=== PATIENT | male | born 1955 | race Caucasian/White ===

== ENCOUNTER → 2020-12-09 | Outpatient (CLI) | payer MEDICARE, BC ==
[~2020-12-09] MED LIST: ASPI-630 PO; ATOR40TA59 PO
--- NOTE | 2020-12-09 12:20 | PDOC1 ---
INITIAL PAIN CONSULT DATE OF SERVICE: DOS: DATE: 12/09/20 TIME: 12:13 CHIEF COMPLAINT: Chief Complaint: Neck and right upper extremity pain HISTORY OF PRESENT ILLNESS: 65-year-old male presents history of pain base the neck and right shoulder as well as occasional radiation of the right upper extremity going on since July 2020 not the result of any specific injury or accident that he is aware of but is had significant pain gradually increasing in the base the neck on the right shoulder and arm patient reports throbbing and stabbing tingling at times radiating in the right arm occasionally but not constantly patient reports its aching in the neck changes during the day worse with activity weight lifting repetitive motions with right upper extremity reaching over his head with his r ight hand for any repetitive motions also can disturb her from sleep although not every night but if he lays on his right side is much more noticeable. Patient reports has had trigger point injections in the neck and the shoulder as well as a physical therapy which is ongoing chiropractic treatment also ongoing exercises ongoing all which have helped but only temporarily patient is on his second round of a prednisone taper and is decreasing the pain significantly as it did the first time with the pain returning about 1 to 2 weeks later. Patient rates his disability rating 0-10 10 being the worst as a 3 with recreation social activity and occupation and 0 no other categories. Patient did have an MRI scan of the cervical spine showing at C6-7 diffuse disc bulge with small focal left foraminal disc protrusion facet and intervertebral hypertrophy seen with bilateral foraminal stenosis more prominent on the left. Patient reports no loss of motor function but fatigability with the right upper extremity when the pain is at its greatest. PAST MEDICAL HISTORY: PMH: Hearing loss, coronary artery disease, cataracts PREVIOUS SURGERIES: Past Surgical Hx: Coronary artery bypass grafting 2018, bilateral cataract extractions CURRENT MEDICATIONS: Current Meds: Active Scripts Medications Dose Route/Sig Max Daily Dose Days Date Category Aspirin 81 Mg Tab.chew 1 Tab PO DAILY 12/09/20 Reported Atorvastatin Calcium 40 Mg Tablet 1 Tab PO DAILY 12/09/20 Reported ALLERGIES; Allergies: Coded Allergies: No Known Drug Allergies (Unverified , 12/09/20) FAMILY HISTORY: Family Hx: Heart disease in patient's brother and father, colon cancer in patient's mother SOCIAL HISTORY: Social Hx: Patient does not drink alcohol does not smoke does not use any illegal illicit recreational drugs is lives with his spouse has 1 child living at home lives locally in [place], [place] REVIEW OF SYSTEMS: ROS: Positive for those items mentioned in history of present illness, all systems are reviewed, otherwise negative ,and are complete full and well-documented on patient's chart. PHYSICAL EXAM: VS: Blood pressure is 133/88 pulse 65 respirations 16 temperature is 98.3 F height is 5 foot 11 inches weight is 219 pounds PE: PHYSICAL EXAMINATION: GENERAL: The patient is awake, alert, oriented, appropriate, very pleasant demeanor HEENT: Shows normocephalic, atraumatic. Extraocular movements are intact and symmetrical. Patient wearing eyeglasses. Oral cavity: Mucous membranes moist and pink. Dentition is intact. NECK: Shows anterior throat supple without palpable lymphadenopathy noted. Swallow reflex symmetrical. CHEST: Shows normal on inspection. Breath sounds are clear bilaterally. HEART: Shows S1, S2 clear. No murmurs auscultated. ABDOMEN: Soft, nontender, nondistended. No palpable organomegaly is noted. No rebound or guarding demonstrated. BACK: Shows spine grossly in the midline. Normal-appearing cervical lordotic curvature. Cervical paraspinous muscles show symmetrical with inspection on palpation shows some moderate tenderness diffusely in the inferior aspect of the right cervical paraspinous posterior as well as the superior medial trapezius on the right side without specific trigger points asymmetry or atrophy or hypertrophy. Patient does show good rotation motion cervical spine both laterally as well as full extension full forward flexion without significant increase in pain. There is slightly increased thoracic kyphosis, some minor flattening of the lumbar lordotic curvature. EXTREMITIES: Upper extremities show deep tendon reflexes 2+ in the biceps and triceps tendons. Motor exam is 5 on a scale of 5 with right alloy weigher strength, biceps and triceps flexion and 5/5 on the left. Peripheral pulses are 2+ posterior radial. No peripheral edema is noted bilaterally. Upper extremities are warm and dry to touch, equal in color and appearance. Shoulder shrug is [facility] rosa maria and intact bilaterally as is abduction of the shoulder 90 degrees without loss of strength on resistance. SKIN: Shows warm and dry, good turgor. No edema. No sores, rashes or bruising throughout. IMPRESSION: Impression: 65-year-old male with approximate 5-month history of pain base of neck right upper extremity with radicular qualities MRI scan cervical spine as noted Coronary artery disease Options were discussed with the patient clued conservative medical management physical therapies interventional techniques. Patient like to proceed vaginal techniques. We discussed a cervical epidural steroid injection using description as well as anatomical models described procedure. As patient is doing quite well with his current steroid taper orally, we will wait till this is finished and if the pain returns as a he did after his first oral prednisone taper, we will have him return for cervical epidural steroid injection at that time. RONA VALENCIA MD Dec 09, 2020 12:20
== END | disposition home or self-care (01) ==
LOC: PNCL 08:47
PROVIDERS: ATTEND Anesthesiology
DX: M54.2 Cervicalgia (principal); M79.601 Pain in right arm; I25.10 Atherosclerotic heart disease of native coronary artery without angina pectoris; Z79.82 Long term (current) use of aspirin; Z79.899 Other long term (current) drug therapy; Z98.890 Other specified postprocedural states
CPT/HCPCS: G0463

== ENCOUNTER → 2020-12-23 | Outpatient (CLI) | payer MEDICARE, BC ==
[~2020-12-23] MED LIST changes: +IOHEXOL 180 MG/ML 10 ML VIAL. ONE; +methylPREDNISolone ACETATE 40 MG/ML VIAL. ONE; +methylPREDNISolone ACETATE 80 MG/ML VIAL. ONE
--- NOTE | 2020-12-23 10:54 | PDOC ---
Progress Note - Pain Clinic Date of Service: DOS: DATE: 12/23/20 TIME: 10:49 Diagnosis: Dx: Cervical radiculopathy with cervical degenerative disease and cervical herniated disc History or Present Illness: HPI: 65-year-old male returns follow-up status post initial evaluation and preauthorization with Medrol Dosepak taken as well patient reports 100% improvement with the Medrol Dosepak for 4 to 5 days the pain returning now in place the neck and right upper extremity as it was previously. Patient reports no new motor or sensory deficits no new bowel or bladder incontinence or other complaints. Patient rates the pain as a 4 on a scale of 10 is worst average and had 1 at its least and is a 4 today. Patient cries pain is aching and dull in the base the neck and shoulder right upper extremity right bicep into the hand as well as the fingers with some tingling times. Patient reports no difficulty with sleeping mostly noticeable with repetitive motions of the right upper extremity or weight lifting. Physical Exam: VS: Blood pressure is 133/88 pulse 62 respirations 16 temperature 90.5 F weight is 217 pounds PE: PHYSICAL EXAMINATION: GENERAL: The patient is awake, alert, oriented, appropriate, and very pleasant demeanor HEENT: Shows normocephalic, atraumatic. Extraocular movements are intact and symmetrical. NECK: Shows anterior throat supple without palpable lymphadenopathy noted. Swallow reflex symmetrical. CHEST: Shows normal on inspection. Breath sounds are clear bilaterally. HEART: Shows S1, S2 clear. No murmurs auscultated. ABDOMEN: Soft, nontender, nondistended, obese. No palpable organomegaly is noted. BACK: Shows spine grossly in the midline. Normal-appearing cervical lordotic curvature. Cervical paraspinous muscles show symmetrical with inspection on palpation some moderate tenderness diffusely but only diffusely without significant radiation. Patient does show good rotation motion cervical spine extension flexion without significant increase in pain as well. There is slightly increased thoracic kyphosis, some minor flattening of the lumbar lordotic curvature. EXTREMITIES: Upper extremities show deep tendon reflexes 2+ in the biceps and triceps tendons. Motor exam is 5 on a scale of 5 with right sash repairer strength, biceps and triceps flexion and 5/5 on the left. Peripheral pulses are 2+ radial. No peripheral edema is noted bilaterally. Upper extremities are warm and dry to touch, equal in color and appearance. SKIN: Shows warm and dry, good turgor. No edema. No sores, rashes or bruising throughout. Procedure: Procedure: Options were discussed with the patient. Patient chart reviewed his current medication regimen updated current review of systems updated today as well. We will proceed with a cervical epidural steroid ejections today with fluoroscopic guidance. Risks were discussed including but not limited to: Bleeding, infection, possibility of epidural hematoma and subsequent neurological compromise, dural puncture, headaches, spinal cord and/or nerve damage, side effects of steroid medication, and poor results regarding pain control. Patient understands and wished to proceed. Patient return to clinic in approximately 2 weeks for follow-up, was counseled as to return appointment activity level and side effects to be aware of. Medication Injected: Med Injected: Procedure cervical epidural steroid injection at the C6-7 level, using local anesthetic under sterile prep and drape using C-arm fluoroscopic guidance under local anesthesia medications injected ; 120 mg Depo-Medrol + 5 mL normal saline and 2 mL contrast; condition at discharge is stable patient tolerated procedure well. and had no complications Condition at Discharge: Condition at Discharge: Condition at discharge is stable, patient tolerated the procedure well and had no complications. RONA VALENCIA MD Dec 23, 2020 10:54
--- NOTE | 2020-12-23 10:56 | PDOC4 ---
PROCEDURE Procedure Patient was consented for cervical epidural steroid injection. Risks were d iscussed including but not limited to: Bleeding, infection, possibility of epidural hematoma and subsequent neurological compromise, dural puncture, headaches, spinal cord and/or nerve damage, side effects of steroid medication, and poor results regarding pain control. Patient understands and wished to proceed. Procedure cervical epidural steroid injection at the C6-7 level, using local anesthetic under sterile prep and drape using C-arm fluoroscopic guidance under local anesthesia medications injected ; 120 mg Depo-Medrol + 5 mL normal saline and 2 mL contrast; condition at discharge is stable patient tolerated procedure well. and had no complications RONA VALENCIA MD Dec 23, 2020 10:56
== END | disposition home or self-care (01) ==
LOC: PNCL 10:02
PROVIDERS: ATTEND Anesthesiology
DX: M50.10 Cervical disc disorder with radiculopathy, unspecified cervical region (principal); Z79.82 Long term (current) use of aspirin; Z79.899 Other long term (current) drug therapy
CPT/HCPCS: 62321; J1030; J1040; Q9965

== ENCOUNTER → 2021-01-06 | Outpatient (CLI) | payer MEDICARE, BC ==
[~2021-01-06] MED LIST changes: -IOHEXOL 180 MG/ML 10 ML VIAL. ONE; -methylPREDNISolone ACETATE 40 MG/ML VIAL. ONE; -methylPREDNISolone ACETATE 80 MG/ML VIAL. ONE
--- NOTE | 2021-01-06 09:23 | PDOC ---
Progress Note - Pain Clinic Date of Service: DOS: DATE: 01/06/21 TIME: 09:19 Diagnosis: Dx: Cervical radiculopathy with cervical degenerative disease and cervical herniated disc History or Present Illness: HPI: 65-year-old male returns for follow-up status post cervical epidural steroid injection x1. Patient reports 75% 80% improvement in the neck and right upper extremity. Patient reports he can increase his activity with greater ease and comfort sleeping better at night do daily activities distance walking playing golf working driving without significant increase in pain. Patient marva still has some pain in the base the neck and the right shoulder with some radiation to right upper extremity but it is rare patient reports pain is a 4 on a scale 10 is worse over the past week 1 on average 0 its least is a 1 today patient ports aching and dull tingling in the right arm at times but no new motor or sensory deficits no loss of strength reaching over his head with much greater ease and comfort and again sleeping well at night. Physical Exam: VS: Blood pressure is 125/80 pulse 67 respirations 16 temperature 98.0 F weight is 217 pounds PE: PHYSICAL EXAMINATION: GENERAL: The patient is awake, alert, oriented, appropriate, very pleasant demeanor HEENT: Shows normocephalic, atraumatic. Extraocular movements are intact and symmetrical. Oral cavity: Mucous membranes moist and pink. NECK: Shows anterior throat supple without palpable lymphadenopathy noted. Swallow reflex symmetrical. CHEST: Shows normal on inspection. Breath sounds are clear bilaterally, no rales or rhonchi. HEART: Shows S1, S2 clear. No murmurs auscultated. ABDOMEN: Soft, nontender, nondistended, obese. No palpable organomegaly is noted. BACK: Shows spine grossly in the midline. Normal-appearing cervical lordotic curvature. Cervical paraspinous muscles show symmetrical with inspection on palpation some mild tenderness in the inferior aspect of the cervical paraspinous musculature on the right only but only very minimal also into the superior medial trapezius but without trigger points without asymmetry or atrophy or hypertrophy. Neck shows full rotation motion cervical spine both laterally greater than 45 degrees closer to 90 degrees well is full extension full forward flexion without significant difficulty or pain reported. There is slightly increased thoracic kyphosis, some minor flattening of the lumbar lordotic curvature. EXTREMITIES: Upper extremities show deep tendon reflexes 2+ in the biceps and triceps tendons. Motor exam is 5 on a scale of 5 with right rib strength, biceps and triceps flexion and 5/5 on the left. Peripheral pulses are 2+ radial. No peripheral edema is noted bilaterally. Upper extremities are warm and dry to touch, equal in color and appearance. SKIN: Shows warm and dry, good turgor. No edema. No sores, rashes or bruising throughout. Procedure: Procedure: Options were discussed with the patient. Patient chart reviews his current medication regimen updated current review of systems updated today as well. We will hold any further injections the patient was in quite a bit better. Patient was encouraged to increase activity as tolerated continue stretching strength exercises as well. At this time patient will follow up on as-needed basis. Medication Injected: Med Injected: None Condition at Discharge: Condition at Discharge: Condition at discharge is stable. RONA VALENCIA MD Jan 06, 2021 09:23
== END | disposition home or self-care (01) ==
LOC: PNCL 08:52
PROVIDERS: ATTEND Anesthesiology
DX: M50.10 Cervical disc disorder with radiculopathy, unspecified cervical region (principal); Z79.82 Long term (current) use of aspirin; Z79.899 Other long term (current) drug therapy; Z98.890 Other specified postprocedural states
CPT/HCPCS: 99212; G0463

== ENCOUNTER → 2021-02-03 | Outpatient (CLI) | payer MEDICARE, BC ==
[~2021-02-03] MED LIST changes: +BUPIVACAINE MPF 0.25% 10 ML VIAL. ONE; +methylPREDNISolone ACETATE 40 MG/ML VIAL. ONE
--- NOTE | 2021-02-03 10:59 | PDOC ---
Progress Note - Pain Clinic Date of Service: DOS: DATE: 02/03/21 TIME: 10:54 Diagnosis: Dx: Cervical radiculopathy with cervical degenerative disease and cervical herniated disc Myofascial pain History or Present Illness: HPI: 65-year-old male returns for follow-up status post cervical epidural steroid traction x1 on December 23, 2020. Patient reports he did very well about 80% improvement still about 50% improved he has some significant increase in pain in the base of the neck upper neck shoulders and upper back bilaterally which is spastic and cramping. Patient reports has had some trigger point injections in the past which worked very well from outside provider and as though the radicular pain is still doing very well with the least 50% improvement the muscular pain is becoming more noticeable as he has been playing more golf lately and getting more active. Patient reports his pain is aching and dull tingling in the base the neck and shoulders also the upper neck and the base of the head patient reports a 6 on scale 10 is worse over the past week for an average to its least is a 4 today patient reports no new motor or sensory deficits no new changes. Physical Exam: VS: Blood pressure is 121/79 pulse 67 respirations 18 temperature 98.7 F height 5 feet 11 inches weight is 212 pounds PE: PHYSICAL EXAMINATION: GENERAL: The patient is awake, alert, oriented, appropriate, very pleasant demeanor HEENT: Shows normocephalic, atraumatic. Extraocular movements are intact and symmetrical. Oral cavity: Mucous membranes moist and pink. Dentition is intact. NECK: Shows anterior throat supple without palpable lymphadenopathy noted. Swallow reflex symmetrical. CHEST: Shows normal on inspection. Breath sounds are clear bilaterally, no rales or rhonchi. HEART: Shows S1, S2 clear. No murmurs auscultated. ABDOMEN: Soft, nontender, nondistended, obese. No palpable organomegaly is noted. No rebound or guarding demonstrated. BACK: Shows spine grossly in the midline. Normal-appearing cervical lordotic curvature. Cervical paraspinous muscles show symmetrical inspection with palpation shows some very firm tender musculature throughout the upper middle lower distribution the cervical paraspinous muscles are very firm ropelike musculature bilaterally with trigger point areas which are very tender but without radiation this is true into the superior medial trapezius muscle lateral trapezius worse on the right than the left also into the thoracic paraspinous musculature bilaterally with very firm ropelike musculature as well consistent with trigger point areas again without radiation but with very significant tend erness. There is slightly increased thoracic kyphosis, some minor flattening of the lumbar lordotic curvature. EXTREMITIES: Upper extremities show deep tendon reflexes 2+ in the biceps and triceps tendons. Motor exam is 5 on a scale of 5 with right strength, biceps and triceps flexion and 5/5 on the left. Peripheral pulses are 2+ radial. No peripheral edema is noted bilaterally. Upper extremities are warm and dry to touch, equal in color and appearance. SKIN: Shows warm and dry, good turgor. No edema. No sores, rashes or bruising throughout. Procedure: Procedure: Options were discussed with the patient. Patient chart reviews his current medication regimen updated current review of systems updated today as well. We will proceed with trigger point injections of the identified musculature. Risks are discussed including but not limited to bleeding infection possibility of intravascular injection sequelae spread local acetic numbness pneumothorax side effects steroid medication and portal scarring pain control. Patient understands wished to proceed. Patient return to clinic in approximate 2 weeks for follow-up was counseled as to return appointment activity level and side effects to be aware of. Medication Injected: Med Injected: Under sterile prep and drape patient sitting position, trigger point areas were identified in the bilateral cervical paraspinous posterior bilateral trapezius musculature bilateral thoracic paraspinous musculature. Each were injected using a 25-gauge needle after negative aspiration each injection site total of 12 cc 0.25% bupivacaine and total of 40 mg Depo-Medrol. Patient tolerated procedure well and had no complications. Condition at Discharge: Condition at Discharge: Condition at discharge stable, patient tolerated procedure well and had no complications. RONA VALENCIA MD Feb 03, 2021 10:59
--- NOTE | 2021-02-03 11:00 | PDOC4 ---
PROCEDURE Procedure Patient was consented for trigger point injections. Risk were discussed inc luding but not limited to bleeding infection possibility of intravascular injection sequelae spread to local anesthetic and numbness pneumothorax side effects of steroid medication and poor results running pain control. Patient understands wished to proceed. Under sterile prep and drape patient sitting position, trigger point areas were identified in the bilateral cervical paraspinous posterior bilateral trapezius musculature bilateral thoracic paraspinous musculature. Each were injected using a 25-gauge needle after negative aspiration each injection site total of 12 cc 0.25% bupivacaine and total of 40 mg Depo-Medrol. Patient tolerated procedure well and had no complications. RONA VALENCIA MD Feb 03, 2021 11:00
== END | disposition home or self-care (01) ==
LOC: PNCL 09:53
PROVIDERS: ATTEND Anesthesiology
DX: M50.10 Cervical disc disorder with radiculopathy, unspecified cervical region (principal); M79.18 Myalgia, other site; Z79.82 Long term (current) use of aspirin; Z79.899 Other long term (current) drug therapy
CPT/HCPCS: 20553; J1030; J3490

== ENCOUNTER → 2021-03-03 | Outpatient (CLI) | payer MEDICARE, BC ==
[~2021-03-03] MED LIST changes: -BUPIVACAINE MPF 0.25% 10 ML VIAL. ONE; +IOHEXOL 180 MG/ML 10 ML VIAL. ONE; +methylPREDNISolone ACETATE 80 MG/ML VIAL. ONE
--- NOTE | 2021-03-03 10:50 | PDOC ---
Progress Note - Pain Clinic Date of Service: DOS: DATE: 03/03/21 TIME: 10:47 Diagnosis: Dx: Cervical radiculopathy with cervical degenerative disc disease and cervical herniated disc Myofascial pain History or Present Illness: HPI: 65-year-old male returns for follow-up status post cervical epidural to injection x1 and trigger point injections. Patient reports that both of these helped significantly 80% with a cervical epidural injection which is December 23, 2020 and the same initially with trigger point directions but the pain returned fairly quickly after the trigger point injections. Patient reports pain now is in the base the neck and the left upper extremity shoulder and upper arm worse with repetitive motions weightbearing and lifting items but better with resting and sleeping patient reports is not awakening from sleep at night the pain is not debilitating and severely but is annoying and is present and getting worse on the left side patient reports is a 9 on scale 10 is worse over the past week 6 on average to its least. Patient reports is dull and tight neck shooting in the left arm and shoulder in the posterior deltoid posterior triceps and forearm patient reports no motor loss no other complaints. Physical Exam: VS: Blood pressure is 139/84 pulse 64 respirations are 16 temperature is 98.2 F height is 5 foot 11 inches weight is 216 pounds PE: PHYSICAL EXAMINATION: GENERAL: The patient is awake, alert, oriented, appropriate, very pleasant demeanor HEENT: Shows normocephalic, atraumatic. Extraocular movements are intact and symmetrical. Oral cavity: Mucous membranes moist and pink. Dentition is intact. NECK: Shows anterior throat supple without palpable lymphadenopathy noted. Swallow reflex symmetrical. CHEST: Shows normal on inspection. Breath sounds are clear bilaterally, distant but no rales or rhonchi. HEART: Shows S1, S2 clear. No murmurs auscultated. ABDOMEN: Soft, nontender, nondistended. No palpable organomegaly is noted. BACK: Shows spine grossly in the midline. Normal-appearing cervical lordotic curvature. Cervical paraspinous muscles show symmetrical inspection, on palpation some moderate tenderness diffusely bilaterally diffusely without significant radiation. Patient shows good rotation motion cervical spine both laterally as well as extension flexion without significant difficulty or pain reported. There is slightly increased thoracic kyphosis, some minor flattening of the lumbar lordotic curvature. EXTREMITIES: Upper extremities show deep tendon reflexes 2+ in the biceps and triceps tendons. Motor exam is 5 on a scale of 5 with right bowling teacher strength, biceps and triceps flexion and 5/5 on the left. Peripheral pulses are 2+ radial. No peripheral edema is noted bilaterally. Upper extremities are warm and dry to touch, equal in color and appearance. SKIN: Shows warm and dry, good turgor. No edema. No sores, rashes or bruising throughout. Procedure: Procedure: Options were discussed with patient. Patient will chart reviews his current medication regimen updated current review of systems updated today as well. We will proceed with a second in the series cervical epidural steroid injection today with fluoroscopic guidance. Risks were discussed including but not limited to: Bleeding, infection, possibility of epidural hematoma and subsequent neurological compromise, dural puncture, headaches, spinal cord and/or nerve damage, side effects of steroid medication, and poor results regarding pain control. Patient understands and wished to proceed. Patient will return to clinic in approximate 2 weeks for follow-up, was counseled as to return appointment activity level and side effects to be aware of. Medication Injected: Med Injected: Procedure cervical epidural steroid injection at the C6-7 level, using local anesthetic under sterile prep and drape using C-arm fluoroscopic guidance under local anesthesia medications injected ; 120 mg Depo-Medrol + 5 mL normal saline and 2 mL contrast; condition at discharge is stable patient tolerated procedure well. and had no complications Condition at Discharge: Condition at Discharge: Condition at discharge is stable, patient already procedure well and had no complications. RONA VALENCIA MD Mar 03, 2021 10:50
--- NOTE | 2021-03-03 10:51 | PDOC4 ---
PROCEDURE Procedure Patient was consented for cervical epidural steroid injection. Risks were d iscussed including but not limited to: Bleeding, infection, possibility of epidural hematoma and subsequent neurological compromise, dural puncture, headaches, spinal cord and/or nerve damage, side effects of steroid medication, and poor results regarding pain control. Patient understands and wished to proceed. Procedure cervical epidural steroid injection at the C6-7 level, using local anesthetic under sterile prep and drape using C-arm fluoroscopic guidance under local anesthesia medications injected ; 120 mg Depo-Medrol + 5 mL normal saline and 2 mL contrast; condition at discharge is stable patient tolerated procedure well. and had no complications RONA VALENCIA MD Mar 03, 2021 10:51
== END | disposition home or self-care (01) ==
LOC: PNCL 10:03
PROVIDERS: ATTEND Anesthesiology
DX: M50.10 Cervical disc disorder with radiculopathy, unspecified cervical region (principal); M79.18 Myalgia, other site; Z79.82 Long term (current) use of aspirin; Z79.899 Other long term (current) drug therapy
CPT/HCPCS: 62321; J1030; J1040; Q9965

== ENCOUNTER → 2021-06-20 | Outpatient (CLI) | payer MEDICARE, BC ==
--- NOTE | 2021-06-20 08:10 | PDOC ---
Progress Note - Pain Clinic Date of Service: DOS: DATE: 06/20/21 TIME: 08:07 Diagnosis: Dx: Cervical radiculopathy with cervical degenerative disease and cervical herniated disc Myofascial pain History or Present Illness: HPI: 65-year-old male returns for follow-up status post cervical epidural steroid injection x2 last seen March 03, 2021 patient reports he did very well with about 90% improvement for almost 3 months patient reports pain is beginning to return now in the base the neck and left shoulder upper extremity radiating to the arm and hand mostly in the shoulder and upper back however patient reports is dull and tingling on and off in intensity patient reports increased activity however doing distance walking doing household activities work activities sporting activities playing golf multiple comfortably patient reports is able to sit and relax a lot better does not awaken from sleep at night patient reports is an 8 on scale 10 is worse over the past week 6 on average to its least and is a 4 today. Patient reports no new motor or sensory deficits no new bowel or bladder or other complaints. Physical Exam: VS: Blood pressure is 124/81 pulse 74 respirations 16 temperature 98.3 F weight is 215 pounds PE: PHYSICAL EXAMINATION: GENERAL: The patient is awake, alert, oriented, appropriate, very pleasant in demeanor. HEENT: Shows normocephalic, atraumatic. Extraocular movements are intact and symmetrical. Oral cavity: Mucous membranes moist and pink. Dentition is i ntact. NECK: Shows anterior throat supple without palpable lymphadenopathy noted. Swallow reflex symmetrical. CHEST: Shows normal on inspection. Breath sounds are clear bilaterally, distant no rales rhonchi or wheezes auscultated. HEART: Shows S1, S2 clear. No murmurs auscultated. ABDOMEN: Soft, nontender, nondistended, obese. No palpable organomegaly is noted. BACK: Shows spine grossly in the midline. Normal-appearing cervical lordotic curvature. Cervical paraspinous muscles show symmetrical inspection, on palpation some moderate tenderness diffusely bilaterally diffusely without significant radiation patient shows slightly more tenderness on the left side than the right in the superior medial trapezius. Patient shows full rotation motion cervical spine both laterally as well as full extension full forward flexion without significant difficulty. There is slightly increased thoracic kyphosis, some minor flattening of the lumbar lordotic curvature. EXTREMITIES: Upper extremities show deep tendon reflexes 2+ in the biceps and triceps tendons. Motor exam is 5 on a scale of 5 with right strength, biceps and triceps flexion and 5/5 on the left. Peripheral pulses are 2+ radial. No peripheral edema is noted bilaterally. Upper extremities are warm and dry to touch, equal in color and appearance. SKIN: Shows warm and dry, good turgor. No edema. No sores, rashes or bruising throughout. Procedure: Procedure: Options were discussed with the patient. Patient chart reviewed his current medication regimen updated current view systems updated today as well. We will proceed with a third cervical epidural steroid injection today with fluoroscopic guidance. Risks were discussed including but not limited to: Bleeding, infection, possibility of epidural hematoma and subsequent neurological compromise, dural puncture, headaches, spinal cord and/or nerve damage, side effects of steroid medication, and poor results regarding pain control. Patient understands and wished to proceed. Patient return to the clinic in approximate 2-3 weeks for follow-up, was counseled as to return appointment activity level and side effects to be aware of. Medication Injected: Med Injected: Procedure cervical epidural steroid injection at the C6-7 level, using local anesthetic under sterile prep and drape using C-arm fluoroscopic guidance under local anesthesia medications injected ;120 mg Depo-Medrol +5 mL normal saline and 2 mL contrast; condition at discharge is stable patient tolerated procedure well. and had no complications Condition at Discharge: Condition at Discharge: Condition at discharge stable, patient already procedure well and had no complications. RONA VALENCIA MD Jun 20, 2021 08:10
--- NOTE | 2021-06-20 08:11 | PDOC4 ---
Procedure Note: ICD 10 Code: ICD 10 Code: M54.12 M50.30 M50.21 Procedure Note: Patient was consented for cervical epidural steroid injection with fluoroscopic guidance. Risks were discussed including but not limited to: Bleeding, infection, possibility of epidural hematoma and subsequent neurological compromise, dural puncture, headaches, spinal cord and/or nerve damage, side effects of steroid medication, and poor results regarding pain control. Patient understands and wished to proceed. Procedure cervical epidural steroid injection at the C6-7 level, using local a nesthetic under sterile prep and drape using C-arm fluoroscopic guidance under local anesthesia medications injected ;120 mg Depo-Medrol +5 mL normal saline and 2 mL contrast; condition at discharge is stable patient tolerated procedure well. and had no complications RONA VALENCIA MD Jun 20, 2021 08:11
== END | disposition home or self-care (01) ==
LOC: PNCL 07:36
PROVIDERS: ATTEND Anesthesiology
DX: M50.10 Cervical disc disorder with radiculopathy, unspecified cervical region (principal); M79.18 Myalgia, other site; Z79.82 Long term (current) use of aspirin; Z79.899 Other long term (current) drug therapy
CPT/HCPCS: 62321; J1030; J1040; Q9965